=== PATIENT | female | born 1990 | race Caucasian/White ===

== ENCOUNTER 2018-03-09 10:35 | Emergency (ER) | payer MEDICAID, OTHER ==
[~2018-03-09] VITALS: Ht 177.8 cm; Wt 113.4 kg
--- NOTE | 2018-03-09 10:41 | NUR ---
PT AMBULATES TO BED 11
[2018-03-09 10:45] VITALS: BP 151/95
--- NOTE | 2018-03-09 10:54 | NUR ---
PATIENT PRESENTS TO ED WITH RIGHT CALF ACHE /SORENESS PAIN . PT STATES [WHILE DANCING LAST NIGHT HEARD/FELT A POP TO RIGHT CALF AREA---NO SWELLING NO DISCOLORATION OR INCREASED WARMTH PALPATED TO AREA . DENIES N/V/D; SKIN IS PINK/WARM/DRY; AAOX4 WITH EVEN AND STEADY GAIT; LUNGS CLEAR BL; HR EVEN AND REGULAR; PT DENIES ANY FEVER, CP, SOB, OR COUGH AT THIS TIME; PATIENT STATES PAIN OF 4/10 AT THIS TIME; VSS; PATIENT POSITIONED FOR COMFORT; HOB ELEVATED; BEDRAILS UP X2; BED DOWN. ER MD MADE AWARE OF PT STATUS.
--- NOTE | 2018-03-09 10:56 | NUR ---
DR CORBIN EVALUATING AT BEDSIDE
[2018-03-09] MEDS ORDERED: KETOROLAC 60 MG/2 ML VIAL IM ONE (11:00)
[2018-03-09] MEDS ORDERED: traMADol 50 MG TAB PO ONE (11:00)
--- NOTE | 2018-03-09 11:22 | NUR ---
ULTRASOUND AT BEDSIDE
--- NOTE | 2018-03-09 12:36 | NUR ---
Patient discharged with v/s stable. Written and verbal after care instructions given and explained. Patient alert, oriented and verbalized understanding of instructions. Ambulatory with steady gait. All questions addressed prior to discharge. ID band removed. Patient advised to follow up with PMD. Rx of TRAMADOL/MOTRIN given. Patient educated on indication of medication including possible reaction and side effects. Opportunity to ask questions provided and answered.
[2018-03-09 12:37] VITALS: BP 132/74
--- NOTE | 2018-03-09 12:37 | NUR ---
ULTRASOUND AND TIB/FIB X-RAY READS HANDED TO PT--
== END 2018-03-09 12:37 | disposition home or self-care (01) ==
LOC: MED 10:35
DX: S89.91XA Unspecified injury of right lower leg, initial encounter (principal); Z88.5 Allergy status to narcotic agent; X58.XXXA Exposure to other specified factors, initial encounter; Y93.41 Activity, dancing; Y92.89 Other specified places as the place of occurrence of the external cause; Y99.8 Other external cause status
CPT/HCPCS: 73590; 93971; 96372; 99284; J1885; Q0092

== ENCOUNTER 2023-08-24 23:31 | Emergency (ER) | payer OTHER ==
[~2023-08-24] VITALS: Ht 177.8 cm; Wt 81.6 kg
[2023-08-25 00:05] VITALS: BP 131/85; PULSE 86; RESP 18; TEMP 97.8; O2SAT 100
[2023-08-25] MEDS ORDERED: NAPR-54 PO (04:02)
[2023-08-25] MEDS ORDERED: CEPH-588 PO (04:02)
== END 2023-08-25 04:25 | disposition home or self-care (01) ==
LOC: MED 23:31
DX: M79.645 Pain in left finger(s) (principal); Z79.899 Other long term (current) drug therapy
CPT/HCPCS: 73140; 99283